=== PATIENT | female | born 1955 | race Caucasian/White ===

== ENCOUNTER 2016-11-17 12:41 | Emergency (ER) | payer OTHER ==
[~2016-11-17] VITALS: Ht 172.7 cm; Wt 90.7 kg
[2016-11-17] MEDS ORDERED: Norco 7.5mg/325mg tab ORAL ONE (13:30)
--- NOTE | 2016-11-17 14:37 | Emergency Room Report ---
History of Present Illness General Chief Complaint: Lower Extremity Injury Source: Patient Present Illness HPI 61 YO female presents to the ED c/o right foot pain 10/10 in severity , localized x 1 day s/p rolling her foot while walking at work pt reports hearing several crunches. Pt. reports swelling, and pain exacerbated upon weightbearing. Patient denies previous injury to the affected extremity. Patient denies pain elsewhere denies erythema denies bruising. Denies CP, Palpitations, LOC, AMS, dizziness, Changes in Vision, Sensation, paresthesias, or a sudden severe headache. Allergies: Coded Allergies: No Known Allergies (Verified Allergy, Unknown, 06/22/10) Patient History Past Medical History: see triage record Past Surgical History: none Pertinent Family History: none Last Menstrual Period: menopause Now: No Reviewed Nursing Documentation: PMH: Agreed, PSxH: Agreed Nursing Documentation-PMH Past Medical History: No Stated History Review of Systems All Other Systems: negative except mentioned in HPI Physical Exam Vital Signs Date Time Temp Pulse Resp B/P Pulse Ox O2 Delivery O2 Flow Rate FiO2 11/17/16 12:53 97.9 74 19 163/65 97 Room Air Sp02 EP Interpretation: reviewed, normal General Appearance: no apparent distress, alert, GCS 15, non-toxic Head: normocephalic, atraumatic Eyes: bilateral eye PERRL, bilateral eye normal inspection ENT: hearing grossly normal, normal pharynx, no angioedema, normal voice Neck: full range of motion, supple/symm/no masses Respiratory: lungs clear, normal breath sounds, speaking full sentences Cardiovascular #1: regular rate, rhythm, no edema Cardiovascular #2: 2+ dorsalis pedis (R), 2+ dorsalis pedis (L) Musculoskeletal: back normal, normal range of motion - with pain, tender - dorsal and lateral TTP to the right foot, mild swelling noted, no bruising, good capillary refill. Neurologic: alert, oriented x3, responsive, motor strength/tone normal, sensory intact, speech normal Psychiatric: judgement/insight normal, memory normal, mood/affect normal, no suicidal/homicidal ideation Skin: normal color, no rash, warm/dry, well hydrated Lymphatic: no adenopathy Medical Decision Making PA Attestation Dr. Devlin is my supervising Physician whom patient management has been discussed with. Diagnostic Impression: Primary Impression: Foot fracture, right Qualified Codes: S92.901A - Unspecified fracture of right foot, initial encounter for closed fracture Additional Impression: Sprain of foot, right Qualified Codes: S93.601A - Unspecified sprain of right foot, initial encounter ER Course Pt. presents to the ED c/o right foot pain 10/10 in severity , localized x 1 day s/p rolling her foot, hear crunches. Pt states injury occurred at work. Ddx considered but are not limited to Fracture, dislocation, contusion, Sprain/ Strain/Spasm, Epidural abscess, Neoplastic mets. Vital signs: are WNL, pt. is afebrile H&PE are most consistent with foot sprain, possible fracture will r/o with imaging. ORDERS: - X-ray Right foot 3 views - positive for lateral avulsion fracture, no Dislocation, or significant soft tissue injury, per preliminary read in ED by Dr. Cabrales ED INTERVENTIONS: - 7.5mg Williams - Short leg posterior Splint applied by aircraft launch and recovery technician. Pt. remains neurovascularly intact. -Crutches are provided to pt. DISCHARGE: At this time pt. is stable for d/c to home. Will provide printed patient care instructions, and any necessary prescriptions. Care plan and follow up instructions have been discussed with the patient prior to discharge. Last Vital Signs Date Time Temp Pulse Resp B/P Pulse Ox O2 Delivery O2 Flow Rate FiO2 11/17/16 12:53 97.9 74 19 163/65 97 Room Air Disposition: HOME, SELF-CARE Condition: Stable Scripts Ibuprofen* (MOTRIN*) 600 Mg Tablet 600 MG ORAL THREE TIMES A DAY, #30 TAB 0 Refills Prov: Annemarie Jones 11/17/16 Hydrocodone Bit/Acetaminophen 5-325* (NORCO 5-325 TABLET*) 1 Each Tablet 1 TAB ORAL Q6HR Y for For Pain, #10 TAB Prov: Annemarie Jones 11/17/16 Referrals: NON PHYSICIAN (PCP) Departure Forms: Return to Work Return to Work Date: Nov 19, 2016 Work Restrictions: No Heavy Lifting, No Prolonged Standing, Desk Work Only Return to Full Activity: Dec 03, 2016 Patient Instructions: Avulsion Fracture of the Foot, Foot Sprain Additional Instructions: Take medications as directed. Follow up with PCP or [facility] in 3-5 days Return sooner to ED if new symptoms occur, or current symptoms become worse. Do not drink alcohol, drive, or operate heavy machinery while taking Williams as this may cause drowsiness. - Please note that this Emergency Department Report was dictated using [employer] or machinery cleaner technology software, occasionally this can lead to erroneous entry secondary to interpretation by the dictation equipment. Annemarie Jones Nov 17, 2016 14:37
[2016-11-17] MEDS ORDERED: NORCO 5-325 TA1 EAC1 ORAL (14:38)
[2016-11-17] MEDS ORDERED: IBUPROFEN600 MG ORAL (14:38)
[2016-11-17 15:17] VITALS: BP 142/73
--- NOTE | 2016-11-18 09:50 | Diagnostic Imaging Report ---
Indication: PAIN Technique: 3 views right foot Comparison: none Findings: There is mild hallux longus and metatarsus adductus. There is pes cavus. Small plantar spur noted. No acute fractures. No dislocations. Joint spaces are preserved Impression: No acute process
== END 2016-11-17 15:55 | disposition home or self-care (01) ==
LOC: EMR 13:22
DX: S92.901A Unspecified fracture of right foot, initial encounter for closed fracture (principal); S93.601A Unspecified sprain of right foot, initial encounter; X58.XXXA Exposure to other specified factors, initial encounter; Y93.01 Activity, walking, marching and hiking; Y92.219 Unspecified school as the place of occurrence of the external cause; Y99.0 Civilian activity done for income or pay
CPT/HCPCS: 99284